=== PATIENT | male | born 1950 | race Caucasian/White ===

== ENCOUNTER → 2017-07-24 | Outpatient (CLI) | payer MEDICARE, OTHER ==
[2017-07-24] MEDS: IOHEXOL 240 MG/ML 50ML VIAL. PO (11:16)
[2017-07-24] MEDS: IOHEXOL 300 MG/ML 100ML VIAL. IV (11:16)
== END | disposition home or self-care (01) ==
LOC: KCIC CT 09:55
DX: K57.30 Diverticulosis of large intestine without perforation or abscess without bleeding (principal); K76.0 Fatty (change of) liver, not elsewhere classified; I25.10 Atherosclerotic heart disease of native coronary artery without angina pectoris
CPT/HCPCS: 74177; 82565; Q9966; Q9967

== ENCOUNTER → 2017-10-04 | Outpatient (CLI) | payer MEDICARE, OTHER ==
[2017-10-04] MEDS: IOHEXOL 300 MG/ML 100ML VIAL. IV (08:15)
[2017-10-04] MEDS: IOHEXOL 240 MG/ML 50ML VIAL. PO (08:15)
[2017-10-04 08:39] LABS: BLOOD UREA NITROGEN 13 mg/dL (8-26)
[2017-10-04 08:39] LABS: CREATININE 1.1 mg/dL (0.7-1.3); GFR 66.4
== END | disposition home or self-care (01) ==
LOC: CT 07:42
DX: K57.30 Diverticulosis of large intestine without perforation or abscess without bleeding (principal); I70.0 Atherosclerosis of aorta
CPT/HCPCS: 36415; 74177; 82565; 84520; Q9966; Q9967